=== PATIENT | male | born 2000 | race Caucasian/White ===

== ENCOUNTER → 2021-08-13 | Outpatient (CLI) | payer BC, OTHER | LOC: SJCVCIMAG 12:09 | PROVIDERS: ATTEND Internal Medicine Cardiovascular Disease | DX: R55 Syncope and collapse (principal); R00.2 Palpitations; Z82.41 Family history of sudden cardiac death; Z72.89 Other problems related to lifestyle; Z86.16 Personal history of COVID-19; Z82.49 Family history of ischemic heart disease and other diseases of the circulatory system; Z79.899 Other long term (current) drug therapy ==